=== PATIENT | male | born 1990 | race Caucasian/White ===

== ENCOUNTER 2021-11-18 14:33 | Emergency (ER) | payer OTHER, MEDICAID, SELFPAY ==
[2021-11-18 14:53] VITALS: BP 126/87; PULSE 85; RESP 15; TEMP 36.7; O2SAT 96
--- NOTE | 2021-11-18 14:55 | DI.RAD.S_ITS ---
PROCEDURE: XR HAND LT MIN 3V INDICATIONS: crush injury TECHNIQUE: 3 views of the hand(s) acquired. COMPARISON: None. FINDINGS: Bones: No fractures or dislocations. Carpal bones are normally aligned. No suspicious bony lesions. Soft tissues: No suspicious soft tissue calcifications. IMPRESSION: No displaced fractures are seen on these plain films. If there is focal tenderness, or other clinical concern for a fracture not seen on these images in this patient with a given history of trauma, please consider a dedicated CT or a short-term followup plain film series (in 1-2 weeks) for further evaluation. Dictated by: Harry Mcintosh M.D. on 11/18/2021 at 14:48 Approved by: Harry Mcintosh M.D. on 11/18/2021 at 14:48
--- NOTE | 2021-11-18 15:06 | PC.NURSE ---
pt caught his hand between a railing and a boat left hand noted swollen with decrease movement abrasion noted to palm and back of hand just above the wrist
--- NOTE | 2021-11-18 15:22 | ED_ITS ---
HPI - Extremity Injury (Upper) <CAIT Trevino - Last Filed: 11/18/21 17:56> General Chief Complaint: Extremity Injury, Upper Stated Complaint: Left Hand Injury Time Seen by Provider: 11/18/21 14:44 Source: patient Mode of arrival: Family Vehicle History of Present Illness HPI narrative: 31-year-old male presents to the emergency department which left hand pain after he had his left hand squished between a boat and a trailer. He has a small abrasion to the dorsum of his left hand near his MCP joint, his range of motion is intact both flexion and extension of all fingers and wrist. Patient denies any sensation changes to his fingers, complains of mostly hand pain denies finger pain, endorses his tetanus is up-to-date. He denies wanting any pain medication at this time Review of Systems <CAIT Trevino - Last Filed: 11/18/21 17:56> Review of Systems Narrative: General: denies fever, chills, malaise, sweats, fatigue Head/Neck: denies headache, neck pain, dizziness Eyes: denies visual changes, eye pain Cardio: denies chest pain, palpitations, edema Respiratory: denies dyspnea, cough, orthopnea MSK: denies joint pain, muscle weakness, endorses left hand blunt trauma injury with abrasion and pain mild swelling Skin: denies rash, itching, skin lesions or other Neuro: denies numbness, tingling Patient History <CAIT Trevino - Last Filed: 11/18/21 17:56> Social History Smoking Status: Current every day smoker Smoking Status: Current every day smoker tobacco type: cigarettes alcohol intake frequency: 0-2 drinks per day Substance Use Type: marijuana Exam <CAIT Trevino - Last Filed: 11/18/21 17:56> Narrative Exam Narrative: Independently reviewed vitals signs and nursing notes. General: Awake, alert, well-nourished and developed, nontoxic, no cardiorespiratory distress Head/Neck: Atraumatic, neck full range of motion, trachea midline, no JVD or lymphadenopathy. Supple, nontender, no meningeal signs. MSK: Moves all extremities, neurovascularly intact, no flank tenderness Skin: Normal capillary refill, no rash, abrasion on Neuro: Normal speech and cognition, normal gait, A&O x3 Initial Vital Signs Initial Vital Signs: Vital Signs Temperature 98.0 F 11/18/21 14:53 Pulse Rate 85 11/18/21 14:53 Respiratory Rate 15 11/18/21 14:53 Blood Pressure 126/87 11/18/21 14:53 Pulse Oximetry 96 11/18/21 14:53 <Almita Delgado DO - Last Filed: 11/18/21 18:57> Initial Vital Signs Initial Vital Signs: Vital Signs Temperature 98.0 F 11/18/21 14:53 Pulse Rate 85 11/18/21 14:53 Respiratory Rate 15 11/18/21 14:53 Blood Pressure 126/87 11/18/21 14:53 Pulse Oximetry 96 11/18/21 14:53 Procedures <CAIT Trevino - Last Filed: 11/18/21 17:56> Orthopedic Splinting/Casting Injury #1: Side: left Upper Extremity Injury Location: wrist and hand Upper Extremity Immobilizer: thumb spica Post splinting neuro exam: intact and no change Post splinting vascular exam: no change Placed by: Provider Additional Comments: Bacitracin to open wound on dorsum of hand Course <CAIT Trevino - Last Filed: 11/18/21 17:56> Orders Ordered: ED Orders 11/18/21 14:55 XR hand LT min 3V Stat Discontinued Medications Bacitracin (Bacitracin Oint 0.9 Gm Pckt) 1 applic TOP NOW ONE Stop: 11/18/21 15:33 Last Admin: 11/18/21 16:09 Dose: 1 applic Documented by: OSWALDO Vital Signs Vital signs: Vital Signs - 8 hr 11/18/21 14:53 11/18/21 16:13 Temperature 98.0 F Pulse Rate 85 110 H Respiratory Rate 15 16 Blood Pressure 126/87 100/59 L Pulse Oximetry 96 100 <Almita Delgado DO - Last Filed: 11/18/21 18:57> Orders Ordered: ED Orders 11/18/21 14:55 XR hand LT min 3V Stat Discontinued Medications Bacitracin (Bacitracin Oint 0.9 Gm Pckt) 1 applic TOP NOW ONE Stop: 11/18/21 15:33 Last Admin: 11/18/21 16:09 Dose: 1 applic Documented by: OSWALDO Vital Signs Vital signs: Vital Signs - 8 hr 11/18/21 14:53 11/18/21 16:13 Temperature 98.0 F Pulse Rate 85 110 H Respiratory Rate 15 16 Blood Pressure 126/87 100/59 L Pulse Oximetry 96 100 [facility] - Extremity Injury (Upper) <Sherry Mills [facility] - Last Filed: 11/18/21 17:56> Imaging Data Extremity x-ray #1: Radiologist's Impression: PROCEDURE:? XR HAND LT MIN 3V ? INDICATIONS:? crush injury ? TECHNIQUE:? 3 views of the hand(s) acquired.? ? COMPARISON:? None. ? FINDINGS:? ? Bones:? No fractures or dislocations.? Carpal bones are normally aligned.? No suspicious bony lesions.? ? Soft tissues:? No suspicious soft tissue calcifications.? ? ? IMPRESSION:? ? No displaced fractures are seen on these plain films.? ? If there is focal tenderness, or other clinical concern for a fracture not seen on these images in this patient with a given history of trauma, please consider a dedicated CT or a short-term followup plain film series (in 1-2 weeks) for further evaluation.? ? ? Dictated by: Harry Mcintosh M.D. on 11/18/2021 at 14:48 ? ? Approved by: Harry Mcintosh M.D. on 11/18/2021 at 14:48 ? [facility] Narrative Medical decision making narrative: 31-year-old male presents to the emergency department complaining of left hand crush injury between a boat in trailer just prior to arrival. Patient's x-ray was negative for fracture or dislocation, carpal bones are normally aligne. Patient has normal range of motion, a small abrasion to the dorsum of his left hand near his thumb, this was covered with bacitracin, patient has CSM intact, no numbness or tingling or sensation changes, he was splinted in a thumb spica which he endorses feels much more stable and comfortable. Patient was instructed to follow-up with orthopedics if he has ongoing pain beyond 1 or 2 weeks. He is tetanus is up-to-date within the last 2 years. Patient is appropriate and amenable to discharge home. Vital signs are stable on repeat examination is unremarkable. Patient has been informed of results. Patient has been given strict return to ER precautions for any new or worsening symptoms. Patient understands to follow up closely with outpatient providers as instructed. Patient understands plan and agrees to discharge home. All questions and concerns answered at this time. Discharge Plan Departure Patient Disposition: Home Clinical Impression: Hand crush injury Qualifiers: Encounter type: initial encounter Laterality: left Qualified Code(s): S67.22XA - Crushing injury of left hand, initial encounter Instructions: DI for Blunt Trauma Activity Restrictions/Additional Instructions: *You have been diagnosed with a crush injury of your left hand, x-ray was negative for any fracture however if you have ongoing tenderness and pain which limits your range of motion beyond 1-2 weeks please follow-up with orthopedics. This is most likely a harsh strain/sprain however there can be a fracture which did not show up on x-ray today. Please apply antibiotic ointment and keep a Band-Aid over this if you go back to work, wear the splint for as long as it is helpful I would suggest at least 1 week to prevent worsening injury. Ibuprofen or Tylenol as needed for pain in the meantime, if the splint gets in the way, an Abad wrap may also be helpful. *What to do: *Please continue to take your regular medications as directed. [ ] New medication prescriptions sent to your pharmacy: [ ] [ ] New medication written as a paper prescription [ ] No new medications given *Please follow up with your primary care provider in 2-3 days, call for an appointment. Let them know you were seen in the Emergency Department and that we ask that you be seen in follow up. We will electronically transmit a record of today's note if your PCP is in our system *If you do not have a primary care provider please contact the [facility] Resource line at [phone]. They will ask some questions about your medical history and help get you set up with a doctor in the community. *Return to Emergency Department if you should have any new, worsening or concerning symptoms, such as [fever greater than 101F, chills, worsening pain, persistent vomiting or other bothersome symptoms] Referrals: [facility] [Provider Group] <DO Linda Page Filed: 11/18/21 18:57> Cosign ED Attending Cosignature Attestation: I was immediately available in the department for consultation. Documentation has been reviewed.
[2021-11-18] MEDS: BACITRACIN OINT 0.9 GM PCKT 1 APPLIC TOP (16:09)
[2021-11-18 16:13] VITALS: BP 100/59; PULSE 110; RESP 16; O2SAT 100
== END 2021-11-18 16:19 | disposition home or self-care (01) ==
PROVIDERS: Emergency Provider Nurse Practitioner Critical Care Medicine
DX: S67.22XA Crushing injury of left hand, initial encounter (principal); W23.0XXA Caught, crushed, jammed, or pinched between moving objects, initial encounter
CPT/HCPCS: 73130; 99283